=== PATIENT | female | born 1925 | race Caucasian/White ===

== ENCOUNTER → 2016-11-09 | Outpatient (CLI) | payer OTHER ==
[~2016-11-09] MED LIST: COL100 PO; COZAAR100 MG PO; HEP5I SC; METHOCARBAMOL500 MG PO; MOR2I IV; NPHOS PO; PER5 PO; THERAGRAN-M1 TA4 PO; TOR30I IV; TRA100 PO; TYL325 PO; ULT50 PO; VESICARE10 M1 PO; ZOFI IV
== END | disposition home or self-care (01) ==
LOC: RD 13:06 → US 13:06
PROC: B54BZZZ Ultrasonography of Right Lower Extremity Veins (ICD-10-PCS; principal; 2016-11-09)
DX: M79.89 Other specified soft tissue disorders (principal)